=== PATIENT | male | born 1965 | race Caucasian/White ===

== ENCOUNTER 2017-04-21 18:36 | Emergency (ER) | payer SELFPAY ==
[~2017-04-21] VITALS: Ht 172.7 cm; Wt 72.1 kg
[2017-04-21 18:50] VITALS: Ht 172.7 cm; Wt 72.1 kg
[2017-04-21 19:45] LABS: BASOPHIL % 0.5 % (0-2); PLATELET COUNT 302 x10^3mcL (130-400); RED CELL DISTRIBUTION WIDTH 13.6 % (11.5-14.5)
[2017-04-21 20:05] LABS: CALCIUM 8.8 mg/dL (8.5-10.1); CARBON DIOXIDE 25.4 mmol/L (21-32); CHLORIDE SERUM 95 mmol/L (98-107); CREATININE SERUM 0.7 mg/dL (0.7-1.3); GFR1 > 60 mL/min; GLUCOSE SERUM 112 mg/dL (74-106); POTASSIUM SERUM 4.3 mmol/L (3.5-5.1); SODIUM SERUM 132 mmol/L (136-145)
[2017-04-21 20:10] LABS: ALBUMIN 4.3 g/dL (3.4-5.0); ALKALINE PHOSPHATASE 117 U/L (46-116); ALT/SGPT 70 U/L (16-63); AST/SGOT 124 U/L (15-37); BILIRUBIN TOTAL 0.86 mg/dL (0.20-1.00)
[2017-04-21 20:24] LABS: TOTAL PROTEIN, SERUM 10.1 g/dL (6.4-8.2)
[2017-04-21 20:27] LABS: AMPHETAMINE QUAL UR NONE DETECTED (NEG <=1000)
[2017-04-21 21:02] VITALS: BP 136/90
== END 2017-04-21 21:02 | disposition home or self-care (01) ==
LOC: ED 18:36
PROVIDERS: Emergency Medicine
DX: R44.3 Hallucinations, unspecified (principal); F10.10 Alcohol abuse, uncomplicated
CPT/HCPCS: 36415; G0480